=== PATIENT | female | born 1965 | race Caucasian/White ===

== ENCOUNTER 2018-10-21 05:31 | Emergency (ER) | payer MEDICAID ==
--- NOTE | 2018-10-21 05:40 | ED Physician Documentation ---
History of Present Illness - Stated complaint Stated Complaint: COUGH,SWEATING - History obtained from History obtained from: Patient - History of Present Illness Timing: How many days ago (2) Pain level now: 0 Improved by: no exacerbating factors Worsened by: no exacerbating factors - Additonal information Additional information: c/o cough productive of brown/green sputum, chills, diaphoresis, generalized myalgias, generalized headache Review of Systems Constitutional: reports: Chills, Myalgias, Sweats, Other (unknown if fever; has not measured temperature at home) Nose: reports: Congestion Throat: denies: Sore throat Respiratory: reports: Cough. denies: Dyspnea : denies: Dysuria, Frequency Neurologic: reports: Headache PD PAST MEDICAL HISTORY - Past Medical History Past Medical History: Yes Cardiovascular: Hypertension Respiratory: Asthma - Present Medications Home Medications: Ambulatory Orders Medication Instructions Recorded Confirmed Oseltamivir [Tamiflu] 75 mg PO BID #9 capsule 10/21/18 - Allergies Allergies/Adverse Reactions: Allergies Allergy/AdvReac Type Severity Reaction Status Date / Time No Known Drug Allergies Allergy Verified 10/21/18 05:40 PD ED PE NORMAL - Vitals Vital signs reviewed: Yes - General General: Alert and oriented X 3, No acute distress, Well developed/nourished - HEENT HEENT: Moist mucous membranes, Pharynx benign - Neck Neck: Supple, no meningeal sign - Cardiac Cardiac: RRR, No murmur - Respiratory Respiratory: No respiratory distress, Other (scattered bilateral rhonchi) Results - Vitals Vitals: Vital Signs - 24 hr 10/21/18 10/21/18 05:38 06:36 Temperature 36.9 C Heart Rate 85 71 Respiratory 17 17 Rate Blood Pressure 176/94 H O2 Saturation 99 98 Oxygen O2 Source Room air - Labs Labs: Laboratory Tests 10/21/18 05:40 Influenza A (Rapid) Negative Influenza B (Rapid) Negative - Rads (name of study) chest xray Radiology: Prelim report reviewed, See rad report PD MEDICAL DECISION MAKING - ED course Complexity details: reviewed results, re-evaluated patient, considered differential, d/w patient ED course: no acute findings on CXR. HPI s/o influenza. will tx for influenza (with tamiflu) despite negative swab results due to high false negative rate and increased risk of complications of untreated influenza given h/o asthma Departure - Departure Disposition: 01 Home, Self Care Clinical Impression: Viral syndrome Condition: Good Instructions: ED Viral Syndrome Prescriptions: Oseltamivir [Tamiflu] 75 mg PO BID #9 capsule Forms: Activity restrictions Discharge Date/Time: 10/21/18 06:38
[2018-10-21 05:42] VITALS: BP 176/94
--- NOTE | 2018-10-21 06:17 | XRAY Report ---
Reason: cough, fever Procedure Date: 10/21/2018 Accession Number: [id number] / [id number] Procedure: XR - Chest 2 View X-Ray CPT Code: 56037 FULL RESULT: EXAM: CHEST RADIOGRAPHY EXAM DATE: 10/21/2018 06:08 AM. CLINICAL HISTORY: Cough, fever. COMPARISON: None. TECHNIQUE: 2 views. FINDINGS: Lungs/Pleura: No focal opacities evident. No pleural effusion. No pneumothorax. Normal volumes. Mediastinum: Heart and mediastinal contours are unremarkable. Other: None. IMPRESSION: Normal 2-view chest radiography. [facility]
[2018-10-21] MEDS ORDERED: OSELTAMIVIR 75 MG CAPSULE PO STA (06:31)
== END 2018-10-21 06:38 | disposition home or self-care (01) ==
LOC: ED 05:31
DX: B34.9 Viral infection, unspecified (principal); I10 Essential (primary) hypertension
CPT/HCPCS: 71046; 87275; 87276; 99283; A9270